=== PATIENT | female | born 1975 | race Caucasian/White ===

== ENCOUNTER 2018-02-04 07:36 | Observation (INO) | payer BC ==
[2018-02-04] MEDS ORDERED: Metoclopramide IV* 5 MG/ML 2 ML VIAL IV ONE (08:34)
[2018-02-04] MEDS ORDERED: NS 0.9% 1000 ML* 1,000 ML IV ONE (08:34)
[2018-02-04] MEDS ORDERED: Ketorolac INJ* 30 MG/ML 1 ML VIAL IV ONE (08:34)
[2018-02-04] MEDS ORDERED: Pantoprazole IV* 40 MG IV ONE (08:34)
[2018-02-04 09:14] LABS: Hematocrit 28 % (35-47); Hemoglobin 8.9 g/dl (12.0-16.0); Mean Corpuscular HGB Conc 32 g/dl (31-36); Mean Corpuscular Hemoglobin 24 pg (27-31); Mean Corpuscular Volume 74 fL (80-97); Mean Platelet Volume 8.6 um3 (7.4-10.4); Platelet Count 303 10^3/ul (150-450); Red Blood Count 3.74 10^6/ul (4.0-5.4); Red Cell Distribution Width 16 % (10.5-15); White Blood Count 7.4 10^3/ul (3.5-10.8)
--- NOTE | 2018-02-04 09:31 | RAD ---
Indication: RIGHT upper quadrant pain. Comparison: No relevant prior exams available on the [facility] [place] PACS for comparison. Technique: RIGHT upper quadrant ultrasound. Report: Appropriate direction flow documented in the portal and hepatic veins. 16.6 cm liver is mildly increased in echogenicity. Negative for focal hepatic lesions. Negative for intrahepatic biliary dilatation. 6 mm diameter upper normal common bile duct. Adequately distended gallbladder with normal 1.4 mm wall is without pathologic finding. Negative for sonographic West's sign. Unremarkable well visualized pancreas. Negative for ascites. 12.8 x 4.2 x 6.6 cm RIGHT kidney is unremarkable. IMPRESSION: 1. Mildly increased echogenicity of the liver consistent with hepatosteatosis. 2. Negative for gallbladder pathology.
[2018-02-04 09:38] LABS: Urine Appearance Clear; Urine Blood Negative (Negative); Urine Color Yellow; Urine Ketones Trace (Negative); Urine Protein Negative (Negative); Urine Specific Gravity 1.006 (1.010-1.030); Urine Urobilinogen Negative (Negative)
[2018-02-04 09:43] LABS: ABS Basophils 0.1 10^3/ul (0-0.2); ABS Eosinophils 0.1 10^3/ul (0-0.6); ABS Lymphocytes 0.8 10^3/ul (1.0-4.8); ABS Monocytes 0.4 10^3/ul (0-0.8); ABS Nucleated RBC 0 10^3/ul; Eosinophil % 1.5 % (0-6); Lymphocyte % 11.1 % (25-47); Nucleated Red Blood Cells % 0
[2018-02-04] MEDS ORDERED: Iohexol 300* (CONTRAST) 10 ML SDV IV ONE (10:12)
--- NOTE | 2018-02-04 11:25 | RAD ---
INDICATION: Abdominal pain COMPARISON: Gallbladder sonogram February 04, 2018 TECHNIQUE: Axial source images were obtained from the hemidiaphragms to the symphysis pubis following administration of oral and intravenous contrast. 61 mL Omnipaque 300 was utilized. Coronal and sagittal reconstructed images were acquired. Lung bases: The lung bases are clear. Liver: The liver is normal in size. There are no masses. There is no ductal dilatation. Gallbladder: There are no calcified gallstones. There is no evidence of wall thickening or pericholecystic fluid. Spleen: The spleen is normal in size. There are no masses. Pancreas: There is no focal pancreatic mass or ductal dilatation. Adrenal glands: There is no evidence of adrenal mass. Kidneys: The kidneys are normal in size and position. There are prompt nephrograms and there is prompt excretion bilaterally. There are no renal parenchymal masses. There is no evidence of nephrolithiasis. Adenopathy: There are multiple mesenteric lymph nodes in the central abdomen near the transverse colon abnormality. These are not technically enlarged by size criteria but are worrisome for metastatic lymph nodes. Fluid collections: There is a small amount of free fluid in the dependent portion of the pelvis. Vessels:There are no significant atherosclerotic changes involving the aorta. There is no focal aneurysm. The iliac vessels are normal in caliber. The IVC appears normal. GI tract: The upper GI tract is unremarkable. There is a roughly 10 cm segment of proximal transverse colon which is associated with significant mural thickening and is worrisome for a primary colonic malignancy. There is a small amount of perienteric stranding as well suggest endoscopy. Pelvic organs: The uterus appears normal. There is no adnexal mass. There is fluid in the adnexal regions Bladder: There are no bladder masses. Abdominal and pelvic soft tissues: The extraperitoneal abdominal and pelvic soft tissues appear normal.. Osseous structures: There are no acute osseous findings. Other: None IMPRESSION: 1. TRANSVERSE COLON LESION SUSPICIOUS FOR PRIMARY COLONIC CARCINOMA PERHAPS WITH REGIONAL LYMPH NODE INVOLVEMENT. SUGGEST ENDOSCOPY. 2. SMALL AMOUNT OF FREE FLUID IN THE DEPENDENT PORTION OF THE PELVIS Findings called to ED
[2018-02-04] MEDS ORDERED: Ketorolac INJ* 30 MG/ML 1 ML VIAL IV PUSH PRN (14:38)
[2018-02-04] MEDS: traMADol TAB* 50 MG PO PRN ×2 (14:53→23:44)
[2018-02-04] MEDS ORDERED: PEG 3000 GI LAVAGE* 1 GALLON PO ONE (17:00)
--- NOTE | 2018-02-04 18:33 | ED ---
Derrek Ruby Gabriel, scribed for Emma Mcdonald MD on 02/04/18 at 0813 . Abdominal Pain/Female - HPI Summary HPI Summary: This patient is a 43 year old F presenting to [facility] with a chief complaint of RUQ pain that began 38 hours ago. The patient rates the pain 9/10 in severity. Symptoms aggravated by movement, palpitation, and laughing. Patient reports nausea. Patient denies cough, trouble passing stool, inability to pass gas, CP, and SOB. Pt had gastric bypass several years ago. - History of Current Complaint Chief Complaint: EDAllergicReaction Stated Complaint: ABD PAIN Time Seen by Provider: 02/04/18 07:48 Hx Obtained From: Patient Hx Last Menstrual Period: 03/09/16 Onset/Duration: Lasting Days - 1.5, Still Present Timing: Constant Severity Initially: Severe Severity Currently: Severe Pain Intensity: 9 Pain Scale Used: 0-10 Numeric Location: Discrete At: RUQ Radiates: No Aggravating Factor(s): Movement, Other: - palpitation, and laughing. Associated Signs and Symptoms: Positive: Negative - SOB, cough, CP, Nausea Allergies/Adverse Reactions: Allergies Allergy/AdvReac Type Severity Reaction Status Date / Time No Known Allergies Allergy Verified 02/04/18 08:01 Home Medications: Home Medications NK [No Home Medications Reported] 02/04/18 [History Confirmed 02/04/18] PMH/Surg Hx/FS Hx/Imm Hx Endocrine/Hematology History: Denies: Hx Anticoagulant Therapy, Hx Diabetes, Hx Thyroid Disease Cardiovascular History: Denies: Hx Hypertension, Hx Pacemaker/ICD Respiratory History: Denies: Hx Asthma, Hx Chronic Obstructive Pulmonary Disease (COPD) History: Denies: Hx Renal Disease Musculoskeletal History: Denies: Hx Congenital Bone Abnormalities, Hx Fibromyalgia Neurological History: Denies: Hx Dementia, Hx Headaches, Hx Seizures, Other Neuro Impairments/ Disorders Psychiatric History: Denies: Hx Attention Deficit Hyperactivity Disorder, Hx Substance Abuse - Surgical History Surgery Procedure, Year, and Place: gastric bypass 2001 - Immunization History Immunizations Up to Date: Yes Infectious Disease History: No Infectious Disease History: Denies: Hx Hepatitis, Hx Human Immunodeficiency Virus (HIV), History Other Infectious Disease, Traveled Outside the [place] in Last 30 Days - Family History Known Family History: Negative: Renal Disease, Respiratory Disease, Seizure Disorder Family History: NON CONTRIBUTORY - Social History Alcohol Use: Occasionally Substance Use Type: Reports: None Smoking Status (MU): Former Smoker Have You Smoked in the Last Year: No Review of Systems Negative: Chest Pain Negative: Shortness Of Breath, Cough Gastrointestinal: Negative - trouble passing stool, inability to pass gas, Positive: Abdominal Pain, Nausea All Other Systems Reviewed And Are Negative: Yes Physical Exam - Summary Physical Exam Summary: GENERAL: Patient is a well developed and nourished F who is lying comfortable in the stretcher. Patient is not in any acute respiratory distress. HEAD AND FACE: Normocephalic EYES: PERRLA, EOMI x 2. EARS: Hearing grossly intact. MOUTH: Oropharynx within normal limits. NECK: Supple, trachea is midline, no adenopathy, no JVD, no carotid bruit. CHEST: Symmetric, no tenderness at palpation LUNGS: Clear to auscultation bilaterally. No wheezing or crackles. CVS: Regular rate and rhythm, S1 and S2 present, no murmurs or gallops appreciated. ABDOMEN: Soft, TTP in the RUQ. Bowel sounds are normal. No abdominal abnormal pulsations. EXTREMITIES: Full ROM in all major joints, no edema, no cyanosis or clubbing. NEURO: Alert and oriented x 3. No acute neurological deficits. Speech is normal and follows commands. SKIN: Dry and warm Triage Information Reviewed: Yes Vital Signs On Initial Exam: Initial Vitals Temp Pulse Resp BP Pulse Ox 97.7 F 65 16 124/69 96 02/04/18 07:37 02/04/18 07:37 02/04/18 07:37 02/04/18 07:37 02/04/18 07:37 Vital Signs Reviewed: Yes Diagnostics - Vital Signs Vital Signs Temp Pulse Resp BP Pulse Ox 02/04/18 07:37 97.7 F 65 16 124/69 96 - Laboratory Result Diagrams: 02/04/18 08:54 02/04/18 08:54 Lab Statement: Any lab studies that have been ordered have been reviewed, and results considered in the medical decision making process. - CT CT ABD/Pelvis CT Interpretation Completed By: Radiologist - 1. TRANSVERSE COLON LESION SUSPICIOUS FOR PRIMARY COLONIC CARCINOMA PERHAPS WITH REGIONAL LYMPH NODE INVOLVEMENT. SUGGEST ENDOSCOPY. 2. SMALL AMOUNT OF FREE FLUID IN THE DEPENDENT PORTION OF THE PELVIS ED physician has reviewed this radiology report. - Additional Comments Diagnostic Additional Comments: Gallbladder US reveals, per radiologist, 1. Mildly increased echogenicity of the liver consistent with hepatosteatosis. 2. Negative for gallbladder pathology. ED physician has reviewed this radiology report. Re-Evaluation - Re-Evaluation First Eval Re-Evaluation Time: 10:03 Change: Unchanged Comment: I informed the patient that her hemoglobin is low and she reports that she is low at baseline. I also informed her of the US results. 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 Abdominal Pain Fem Course/Dx - Course Course Of Treatment: This patient is a 43 year old F presenting to [facility] with a chief complaint of RUQ pain that began 38 hours ago. The patient rates the pain 9/10 in severity. Symptoms aggravated by movement, palpitation, and laughing. Patient reports nausea. Patient denies cough, trouble passing stool, inability to pass gas, CP, and SOB. Pt had gastric bypass several years ago. An EKG reveals. Gallbladder US reveals, per radiologist, 1. Mildly increased echogenicity of the liver consistent with hepatosteatosis. 2. Negative for gallbladder pathology. CT ABD/Pelvis reveals, per radiology, 1. TRANSVERSE COLON LESION SUSPICIOUS FOR PRIMARY COLONIC CARCINOMA PERHAPS WITH REGIONAL. LYMPH NODE INVOLVEMENT. SUGGEST ENDOSCOPY. 2. SMALL AMOUNT OF FREE FLUID IN THE DEPENDENT PORTION OF THE PELVIs. Test results with no significant abnormalities except for a CRP of 18. UA was negative for UTI. In the ED course the patient was given IV fluids, Reglan, toradol, and protonix. 1146 We discussed patient care with Dr. Aguilar and they recommended admission. She will perform a colonoscopy in the morning. 11:48 We discussed patient care with Dr. Childers and they accept the patient for admission. Patient will be admitted for a mass in her colon. The patient is agreeable with this plan. - Diagnoses Provider Diagnoses: Mass of colon Discharge - Sign-Out/Discharge Documenting (check all that apply): Discharge/Admit/Transfer - admitted to Dr. Childers - Discharge Plan Condition: Fair Disposition: ADMITTED TO [facility] Referrals: No Primary Care Phys,NOPCP [Primary Care Provider] - Consult Consult: 1146 We discussed patient care with Dr. Aguilar and they recommended admission. She will perform a colonoscopy in the morning. 11:48 We discussed patient care with Dr. Childers and they accept the patient for admission. The documentation as recorded by the scribe, Anglin,[place] accurately reflects the service I personally performed and the decisions made by , Emma Mcdonald MD.
--- NOTE | 2018-02-04 21:55 | HP ---
HISTORY AND PHYSICAL: DATE OF ADMISSION: 02/04/18 ADMITTING PROVIDER: Alfa Childers MD PRIMARY CARE PROVIDER: None. CHIEF COMPLAINT: Right lower quadrant abdominal pain, nausea. HISTORY OF PRESENT ILLNESS: Betty Martin is a 43-year-old female with no past medical history other than gastric bypass 15 years ago. She presents with 1-1/ 2 to 2 days of sharp, stabbing right lower quadrant abdominal pain, 7-8/10. For the last few months, she has had some discomfort though not pain in her abdomen that comes and goes and she stopped all gluten and subsequently lost 20 pounds. She had a urinary tract infection about 1 month ago, treated at Urgent Care with an unknown antibiotic. She had a few months ago, a similar episode of right lower quadrant pain for which she was treated in the emergency room in [place], [place]. She said they thought it was likely a viral process that would resolve and which it did. The patient has not been able to tolerate much food in the last day. She has not vomited. She describes her bowel movements as loose but not watery. She denies any shortness of breath, chest pain, fevers , or chills. In the emergency room, she was noted to have a hemoglobin of 8.9 down from 11.3 in 2017, microcytic and MCV of 74. She had an ultrasound of her gallbladder, which showed some mild increased echogenicity consistent with possible hepatosteatosis, but otherwise negative for other gallbladder pathology. She had CT abdomen and pelvis with p.o. and IV contrast, which showed a roughly 10- cm segment of proximal transverse colon associated with significant mural thickening and this was "worrisome for primary colonic malignancy." There is a small amount of perienteric stranding and endoscopy was suggested. There was a small amount of free fluid in the dependent portion of the pelvis. There were multiple mesenteric lymph nodes in the central abdomen near the transverse colon abnormality. They were not typically enlarged by size criteria but were "worrisome for metastatic lymph nodes." No evidence of nephrolithiasis was seen. Emergency room physician contacted GI physician, who had arranged to have a colonoscopy tomorrow. PAST MEDICAL/SURGICAL HISTORY: Gastric bypass surgery. MEDICATIONS: None. ALLERGIES: No known drug allergies. FAMILY HISTORY: Her father is alive, has diabetes. Her mother last July at age 66 of COPD and "arrhythmia." SOCIAL HISTORY: The patient is a former smoker, quit 10 years ago, less than 1 pack per day for a few years, only occasional alcohol use. 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 She is accompanied at the bedside by her , Agus Gant, who is her medical surrogate. She wishes to be a full code. No other drug use. REVIEW OF SYSTEMS: The patient denies any fevers, chills, or night sweats. She has had intentional or at least not unexpected weight loss of 20 pounds since changing her diet a few months ago and eliminating gluten and carbohydrates. She denies dysuria or increased frequency or urination. PHYSICAL EXAMINATION GENERAL: The patient is in no acute distress, smiling. VITAL SIGNS: Temperature 97.7, heart rate 65, respiratory rate 16, satting 96% on room air, blood pressure 124/69. HEENT: Normocephalic, atraumatic. Pupils equally round and reactive to light. Extraocular motions intact. No scleral icterus. No oropharyngeal lesions. NECK: Supple. PULMONARY: Clear to auscultation bilaterally with no wheezing, rales, or rhonchi. CARDIOVASCULAR: Regular rate and rhythm. No murmurs, rubs, or gallops. ABDOMEN: Soft, tender to palpation in the suprapubic area. No rebound or guarding. No West's sign. EXTREMITIES: Warm and well perfused. No peripheral edema. NEURO: Manager Critical Care Unit strength 5/5, hip flexion 5/5, dorsi and plantar flexion 5/5. Cranial nerves II through XII intact. Sensation intact. SKIN: Multiple tattoos in her bilateral feet and back. DIAGNOSTIC STUDIES/LAB DATA: White count 7.4, hemoglobin 8.9, hematocrit 28, MCV 74, platelets 303. Sodium 139, potassium 3.5, chloride 107, carbon dioxide 26, BUN 7, creatinine 0.61, glucose 92, lactic acid 0.6. AST 10, ALT 5, total bili 0.5. CRP 18. Amylase 18, lipase less than 10. Beta hCG less than 0.60. Urinalysis: Specific gravity 1.006, trace ketone, otherwise negative. Imaging: Gallbladder ultrasound demonstrated mildly increased echogenicity of the liver consistent with hepatosteatosis, negative for gallbladder pathology. CT abdomen and pelvis with p.o. and IV contrast demonstrates: 1. Transverse colon lesion suspicious for primary colonic carcinoma, perhaps with regional lymph node involvement, suggests endoscopy. 2. Small amount of free fluid in the dependent portion of the pelvis. ASSESSMENT AND PLAN: Betty Gant is a 43-year-old female with personal history of obesity, status post gastric bypass surgery presenting with sharp, stabbing, 7-8/10 abdominal pain with transverse colon mural thickening and some mesenteric lymph nodes, which were concerning for malignancy per the radiologist. She is being prepped for colonoscopy to rule out any malignancy. She will be on clear liquids and then GoLYTELY prep tonight, n.p.o. at midnight. I am adding on iron studies and ferritin for her microcytic anemia, MCV of 74. She denies any evidence of melena, hematochezia, hematuria. She has never had a colonoscopy before. I am adding on a fecal lactoferrin study and also we will get a stool culture. She is otherwise nontoxic appearing. We will do serial abdominal exams. She is being admitted to observation status. She is a full code. Medical surrogate is her , Agus Gant. [id number]/[facility] #: [id number] [facility]
--- NOTE | 2018-02-05 01:12 | CONS ---
CC: Emma Mcdonald MD * GASTROENTEROLOGY CONSULTATION: DATE OF CONSULT: 02/04/18 REFERRING PHYSICIAN: Emma Mcdonald MD HISTORY OF PRESENT ILLNESS: Thank you for asking me to see Mrs. Martin. As you know, she is a 43-year-old female who presented to the emergency room today with complaints of progressive epigastric and right upper quadrant discomfort which has been present over the past month in the severe form and prior to that she states she has just not been feeling well over the past few months. She has had some nausea, but no vomiting. She denies heartburn. She does describe somewhat of a change in bowel habits with looser stools over the past few months. She denies any rectal bleeding or melena. There is no family history of colon cancer or inflammatory bowel disease. In the emergency room, the patient did undergo abdominopelvic CAT scan which did reveal a 10 cm segment of proximal transverse colon with mural thickening, small amount of perienteric stranding as well as multiple mesenteric lymph nodes in the area. Findings suspicious for possible colon carcinoma. The patient has not undergone prior colonoscopy. She is anemic with hematocrit of 28, MCV of 74, and iron saturation of 6, prior hematocrit in March of 2017 was 35. PAST MEDICAL HISTORY: Noncontributory. MEDICATIONS: In hospital include: 1. Toradol. 2. Ultram. ALLERGIES: No known drug allergies. SOCIAL HISTORY: The patient is . She has had 2 boys. She denies tobacco or alcohol abuse. REVIEW OF SYSTEMS: Ten-point review of systems is performed and is otherwise negative. PHYSICAL EXAM: Mrs. Martin is a 43-year-old female, in no acute distress. Temperature is 98.1, heart rate of 56, blood pressure 130/66. HEENT Exam: There is no scleral icterus. Heart is regular rate and rhythm. Lungs are clear. Abdomen is soft. There is fullness in the right upper quadrant area with tenderness to palpation. There is some tenderness in the right lower quadrant and epigastric region as well. There is no distension. Bowel sounds are present. There is no guarding or rebound. Extremities: Without cyanosis, clubbing, or edema. Neurologic exam is grossly intact. Alert and oriented x3. DIAGNOSTIC STUDIES/LAB DATA: Pertinent laboratory studies as described above. IMPRESSION AND PLAN: Mrs. Martin has what appears to be a possible carcinoma of the proximal transverse colon. Differential diagnosis could be a Crohn's disease or segmental colon Crohn's disease in that area with the appearance on CAT scan and iron deficiency anemia. I have discussed the possibilities with the patient and her . Colonoscopy will be scheduled for tomorrow. She is on clear liquids and will receive 4 L of GoLYTELY this evening. The patient understands and is agreeable to colonoscopy tomorrow with Dr. Ahn. [id number]/[facility] #: [id number] KATHERINE
[2018-02-05] MEDS ORDERED: Midazolam* 1 MG/ML 10 ML VIAL (10 MG) ONE ×2 (12:21→13:07)
[2018-02-05] MEDS ORDERED: fentaNYL* 50 MCG/ML 2 ML VIAL (100 MCG VIAL) ONE ×2 (12:21→13:07)
[2018-02-05] MEDS ORDERED: Ondansetron ODT TAB* 4 MG SL PRN (14:32)
[2018-02-05] MEDS: traMADol TAB* 50 MG PO PRN (14:45)
[2018-02-05 14:48] LABS: ABS Basophils 0 10^3/ul (0-0.2); ABS Eosinophils 0.1 10^3/ul (0-0.6); ABS Lymphocytes 0.7 10^3/ul (1.0-4.8); ABS Monocytes 0.3 10^3/ul (0-0.8); ABS Neutrophils 4.3 10^3/ul (1.5-7.7); ABS Nucleated RBC 0 10^3/ul; Hematocrit 26 % (35-47); Hemoglobin 8.4 g/dl (12.0-16.0); Lymphocyte % 13.5 % (25-47); Mean Corpuscular HGB Conc 32 g/dl (31-36); Mean Corpuscular Hemoglobin 24 pg (27-31); Mean Corpuscular Volume 75 fL (80-97); Mean Platelet Volume 8.2 um3 (7.4-10.4); Nucleated Red Blood Cells % 0; Platelet Count 290 10^3/ul (150-450); Red Blood Count 3.51 10^6/ul (4.0-5.4); Red Cell Distribution Width 16 % (10.5-15); White Blood Count 5.6 10^3/ul (3.5-10.8)
[2018-02-05 15:42] VITALS: BP 104/42
--- NOTE | 2018-02-06 12:47 | PRO ---
DATE OF PROCEDURE: 02/05/18 - ROOM #403 PROCEDURE: Colonoscopy. INDICATION: Proximal transverse colon mass. REFERRING PHYSICIAN: None. MEDICATIONS GIVEN: 50 mcg IV fentanyl, 6 mg IV Versed. DESCRIPTION OF PROCEDURE: After the colonoscopy procedure including the risks, benefits, and alternatives, not limited to perforation, surgery, and/or were explained to the patient, written consent was then obtained, IV medication was given and a rectal exam was performed. It exam was unremarkable. An Olympus colonoscope was then inserted into the patient's rectum and advanced very carefully through the colon into the proximal transverse colon. At this point, there was a very large mass. It was circumferential. I was having a difficult time visualizing the lumen within the middle of the mass and thus I decided to not push through it. I did take numerous biopsies of the mass and injected the submucosal tattoo ink on the distal aspect to lion it for the surgeon. The scope was then withdrawn through the remainder of the colon. No other abnormalities were seen. Scope was withdrawn from the patient after a retroflexion maneuver was performed, which was unremarkable. She tolerated the procedure well and was returned to the hospital room in stable condition. IMPRESSION: 1. Incomplete colonoscopy to the hepatic flexure with submucosal tattoo ink injection and biopsies. 2. Proximal transverse colon mass, status post biopsies and submucosal tattoo ink injection. 3. The patient does need a CT of her chest, CEA, surgical consult and likely a hematology/oncology consult. This was conveyed to her hospitalist, to the patient and to her . [id number]/[facility] #: [id number] KATHERINE
--- NOTE | 2018-02-06 13:20 | DS ---
DISCHARGE SUMMARY: DATE OF ADMISSION: 02/04/18 DATE OF DISCHARGE: 02/05/18 ADMITTING AND ATTENDING PHYSICIAN: Alfa Childers MD PRIMARY CARE PROVIDER: None prior to admission, following up with Dr. Uday Pearl and the [facility] upon discharge (Dr. Childers). CHIEF COMPLAINT: Right lower quadrant abdominal pain, nausea. PRINCIPAL DIAGNOSES: A strong suspicion for colon cancer in the proximal transverse colon. HISTORY OF PRESENT ILLNESS AND HOSPITAL COURSE: Betty Martin is a 43-year-old female with past medical history of gastric bypass surgery 15 years ago. She presented with 2 days of sharp stabbing right lower quadrant abdominal pain 7 to 8. She had a similar episode a few months ago. She stopped all her gluten and ate less carbs, lost 20 pounds since then. She had urinary tract infection 1 month ago, treated with unknown antibiotic. She also followed up in the emergency room in [place] a month ago and at that time that was thought a viral process. She was noted to be anemic, hemoglobin 8.9 down from 11.3 in 2017, microcytic with MCV of 74. She had an ultrasound of the gallbladder, which showed some mild increased echogenicity consistent with possible hepatosteatosis, but otherwise negative for gallbladder pathology. She had a CT of abdomen and pelvis with p.o. and IV contrast, which showed a roughly 10- cm segment of proximal transverse colon associated with significant mural thickening, which was "worrisome for primary colonic malignancy." There was a small amount of perienteric stranding and the patient was referred to GI service. She was prepped for colonoscopy, which she had performed on February [address] Ahn. Per his verbal report, there was suspicion for colon cancer in the proximal transverse colon with circumferential thickening and oozing of blood. Dr. Morales of General Surgery was consulted and the patient was scheduled to follow up with him as an outpatient on , 02/11/18 and outpatient Hematology/Oncology appointment with Dr. Meraz was scheduled on . She had CEA that was drawn, it was within normal limits at 0.4. She is going to need a CT of her chest with IV contrast to further delineate any signs of metastatic disease or lymphadenopathy. Her hemoglobin on discharge was 8.4, slightly down from 8.9. She had iron level of 22 and iron sat of 6. She was being discharged on bowel regimen, antinausea medications and will likely need iron supplementation after her surgery. She is going to be following with the [facility] Dr. Childers on 02/10/[address] Uday Pearl. DISCHARGE MEDICATIONS: Include: 1. Docusate 100 mg p.o. b.i.d. 2. Zofran 4 mg sublingual q.6 hours p.r.n. 3. Senokot 8.6 mg p.o. daily. 4. Tramadol 50 mg p.o. q.8 hours p.r.n. for 15 tabs. DISCHARGE DIET: No restrictions. ACTIVITY LEVEL: No restrictions. FOLLOWUP: Patient has followup CT chest with IV contrast at [facility] on Thursday02/09/18, please arrive at 08:45 a.m. Follow up with [facility] with Dr. Childers, Thursday02/10/18 at 09:30 a.m.; General Surgery, Dr. Noe Morales, 02/11/18 at 10 a.m.; Dr. Uday Pearl 03/11/18 at 3 p.m.; Dr. Keny Meraz on 02/19/18 at 1 p.m. TIME SPENT: Time spent on discharge 38 minutes. [id number]/[facility] #: [id number] [facility]ITAL[facility]
== END 2018-02-05 17:20 | disposition home or self-care (01) ==
LOC: ED 07:36 → MED 12:31
PROVIDERS: ADMIT Internal Medicine; ATTEND Internal Medicine
DX: R10.31 Right lower quadrant pain (principal); K63.89 Other specified diseases of intestine; R11.0 Nausea; Z98.84 Bariatric surgery status; Z87.891 Personal history of nicotine dependence
CPT/HCPCS: 36415; 74177; 76705; 80053; 81003; 82150; 82272; 82378; 82728; 83540; 83550; 83605; 83630; 83690; 84702; 85025; 86140; 87045; 87046; 87077; 87899; 88305; 88341; 88342; 96374; 96375; 99156; 99157; 99283; A9270-GY; G0378; J1885; J2250; J2765; J3010; Q9967

== ENCOUNTER 2018-02-23 11:49 | Inpatient (IN) | payer BC ==
--- NOTE | 2018-02-17 15:21 | HP ---
CC: Dr. Meraz * PREOPERATIVE HISTORY AND PHYSICAL: DATE OF ADMISSION/SURGERY: 02/23/18 This patient is scheduled for AA admission by Dr. Morales on 02/23/18. ATTENDING SURGEON: Noe Morales MD * (DICTATED BY RICH SALINAS NP) CHIEF COMPLAINT: Colon cancer. HISTORY OF PRESENT ILLNESS: The patient is a 43-year-old female with a history of open gastric bypass in 2004 at [place]. She has a recent diagnosis of transverse colon cancer. She started having right upper quadrant abdominal pain and tenderness intermittently a few months ago. Initially, she thought it was her gallbladder as she had been told she could develop gallstones after her bariatric surgery. She presented to the [facility] for evaluation of abdominal pain. An ultrasound showed hepatic steatosis and no gallstones. Abdominal CAT scan showed a 10 cm proximal transverse colon mass with multiple mesenteric lymph nodes that were prominent. The liver was without masses. She was admitted to the hospitalist service on 02/04/18 and underwent an incomplete colonoscopy to the hepatic flexure on 02/05/18. Findings included a "very large" circumferential mass in the proximal transverse colon that could not be traversed. It was biopsied and tattooed. Biopsies showed invasive adenocarcinoma, moderately differentiated. She also had a CT of the chest that showed no metastatic disease. She has been seen in followup by Dr. Alfa Childers at the [facility] on 02/10/18. She was discharged from [facility] on 02/05/18. She is being treated for iron-deficiency anemia and she has ongoing abdominal pain, but she denies any nausea or vomiting or blood per rectum or change in bowel movements. She still has a good appetite and does not believe she has lost significant weight. Dr. Morales examined the patient and discussed the findings with the patient and her . He has recommended laparoscopic-assisted right colectomy and explained the nature of the surgical procedure, the rationale for the procedure, the possibility of an open procedure because she has had open gastric bypass, and discussed the relevant risks and benefits. Today, I instructed the patient on a bowel cleansing prep consisting of Colyte, neomycin , Flagyl, and a clear liquid diet to be taken on the day before surgery. She understands that she will be an inpatient. The patient has had a chance to ask questions and stated that she understands the information and is satisfied with the answers given to her questions. She will sign surgical consent on the day of surgery. PAST MEDICAL HISTORY: Significant for morbid obesity, smoking, iron-deficiency anemia. PAST SURGICAL HISTORY: Open gastric bypass in 2004 at [facility]. MEDICATIONS: 1. Oxycodone/acetaminophen 5/325 p.r.n. abdominal pain and she typically takes that twice a day. 2. Iron 325 mg p.o. daily. 3. Sennosides 8.6 mg 1 tablet daily. 4. Docusate 100 mg p.o. daily. ALLERGIES: No known drug allergies. FAMILY HISTORY: No known colon cancer. No known anesthesia complications or bleeding tendencies or clotting disorders. The patient's father is alive, he has diabetes. Her mother is at age 66 of COPD and arrhythmia. 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 She quit smoking about 10 years ago. She occasionally drinks alcohol and denies the use of substances. REVIEW OF SYSTEMS: Constitutional: She reports decreased energy and night sweats, but denies fever or chills or weight change. Hematologic: No easy bruising or bleeding. No history of blood transfusions. Respiratory: No dyspnea on exertion. No chronic cough. Cardiovascular: No anginal chest pain or palpitations. Gastrointestinal: As described in history of present illness. Genitourinary: No dysuria or vaginal discharge. Last menstrual period . Musculoskeletal: Normal. No back pain or joint pain. Lymph: No lymphadenopathy. Skin: No rash or unusual skin changes. General: No previous anesthesia complications, no history of deep vein thrombosis or pulmonary embolism. PHYSICAL EXAMINATION GENERAL SURVEY: The patient is a 43-year-old female, well developed, well nourished, in no acute distress. VITAL SIGNS: Height 69 inches, weight 202 pounds, body mass index 29.8. Blood pressure 104/70, pulse 66 and regular, respiratory rate 18, temperature 98.2 tympanic. HEENT: Benign. NECK: Supple. No cervical lymphadenopathy. No supraclavicular lymphadenopathy. LUNGS: Breath sounds bilaterally clear and equal. HEART: Regular rate and rhythm. No murmurs or rubs appreciated. ABDOMEN: Active bowel sounds. Soft and nondistended. Midline upper abdominal scar well healed. Palpable tender right-sided mass and fullness. No obvious organomegaly. No evidence of ventral hernias. PELVIC: Exam deferred. RECTAL: Exam deferred. EXTREMITIES: Warm without edema or clubbing or cyanosis or skin ulcerations. NEUROLOGIC: Alert and oriented x3. Steady gait. SKIN: Warm, dry, intact. IMPRESSION: Malignant neoplasm of transverse colon. PLAN: AA admission to Dr. Morales' service on 02/23/18, for laparoscopic- assisted right colectomy. The patient will take a preoperative bowel cleansing prep consisting of Colyte, neomycin, Flagyl and a clear liquid diet on 02/22/18. RICH SALINAS, COMPUTED TOMOGRAPHY TECHNOLOGIST [id number]/[facility] #: [id number] MTDNoreen
[~2018-02-23 11:49] MED LIST: Buffered Lidocaine 0.9% SYRIN* 5 ML/SYR SYRINGE INTRADERM ONE; ERTApenem(*) 1 GM in NS 0.9% 50 ML* 50 ML IVPB SCH; Famotidine IV* 10 MG/ML 2 ML (20 mg) IV ONE
[2018-02-23] MEDS ORDERED: Famotidine IV* 10 MG/ML 2 ML (20 mg) ONE (12:00)
[2018-02-23] MEDS ORDERED: Buffered Lidocaine 0.9% SYRIN* 5 ML/SYR SYRINGE ONE (12:00)
[2018-02-23] MEDS ORDERED: Midazolam* 1 MG/ML 5 ML VIAL (5 MG) ONE (12:49)
[2018-02-23] MEDS ORDERED: Propofol* 10 MG/ML 20 ML BTL IV PUSH ONE (12:49)
[2018-02-23] MEDS ORDERED: Lidocaine 2% PF * 5 ML VIAL ONE (12:49)
[2018-02-23] MEDS ORDERED: fentaNYL* 50 MCG/ML 2 ML VIAL (100 MCG VIAL) ONE ×3 (12:49→14:59)
[2018-02-23] MEDS ORDERED: DiMENhydriNATE IV* 50 MG/ML VIAL ONE (12:49)
[2018-02-23] MEDS ORDERED: Ketorolac INJ* 30 MG/ML 1 ML VIAL ONE (12:49)
[2018-02-23] MEDS ORDERED: Dexamethasone IV* 4 MG/ML 1 ML (4 MG) ONE (12:49)
[2018-02-23] MEDS ORDERED: Bupivacaine 0.25% SDV* 30 ML ONE (13:35)
[2018-02-23] MEDS ORDERED: Succinylcholine* 20 MG/ML 10 ML VIAL ONE (13:53)
[2018-02-23] MEDS ORDERED: Heparin VIAL(*) 5000 UNITS/ML VIAL (FIVE THOUSAND) ONE (13:53)
[2018-02-23] MEDS ORDERED: Rocuronium* 10 MG/ML VIAL ONE ×2 (13:53→15:08)
[2018-02-23] MEDS ORDERED: KETAMINE HCL* 50 MG/ML 10 ML VIAL ONE (14:59)
[2018-02-23] MEDS ORDERED: Acetaminophen IV 1GM/100ML * 1,000 MG/100 ML VIAL IVPB ONE (15:01)
[2018-02-23] MEDS ORDERED: Ondansetron INJ* 2 MG/ML VIAL IV PRN (15:01)
[2018-02-23] MEDS ORDERED: Naloxone* 0.4 MG/ML 1 ML VIAL IV PRN (15:01)
[2018-02-23] MEDS ORDERED: fentaNYL* 50 MCG/ML 5 ML VIAL (250 MCG VIAL) ONE (16:21)
[2018-02-23] MEDS ORDERED: Neostigmine Methylsulfate* 1 MG/ML 10 ML VIAL (1 mg/ml) ONE (17:54)
[2018-02-23] MEDS ORDERED: Glycopyrrolate IV* 0.2 MG/ML 1 ML VIAL ONE (17:54)
[2018-02-23] MEDS ORDERED: Ondansetron 40 MG VIAL* 2 MG/ML 20 ML VIAL IV PRN (18:14)
[2018-02-23] MEDS ORDERED: Acetaminophen TAB* 325 MG PO PRN (18:14)
[2018-02-23] MEDS ORDERED: HYDROmorphone INJ* 2 MG/ML CARPUJECT SYRINGE ONE (18:28)
[2018-02-23] MEDS ORDERED: Acetaminophen IV 1GM/100ML * 100 ML ONE (18:28)
[2018-02-23] MEDS: HYDROmorphone INJ* 1 MG/ML CARPUJECT SYRINGE IV PRN ×4 (18:32→19:35)
[2018-02-23] MEDS ORDERED: Ketorolac INJ* 30 MG/ML 1 ML VIAL IV SCH (19:00)
[2018-02-23] MEDS ORDERED: HYDROmorphone PCA* 20 MG/20 ML PCA.SYRING ONE (19:23)
[2018-02-23] MEDS: D5LR 1000 ML BAG* 1,000 ML IV SCH (19:39)
[2018-02-23] MEDS ORDERED: NS 0.9% 1000 ML* 1,000 ML IV SCH ×2 (20:15→21:00)
[2018-02-23] MEDS ORDERED: HYDROmorphone PCA 1 MG/ML Titrat per Protocol PCA SCH (21:00)
[2018-02-23] MEDS ORDERED: HYDROmorphone PCA* 20 MG/20 ML PCA.SYRING PCA SCH (21:00)
[2018-02-23] MEDS: Heparin VIAL(*) 5000 UNITS/ML VIAL (FIVE THOUSAND) SUBCUT SCH (21:50)
[2018-02-24] MEDS ORDERED: Naloxone* 0.4 MG/ML 1 ML VIAL IV PRN (01:06)
[2018-02-24] MEDS: D5LR 1000 ML BAG* 1,000 ML IV SCH (03:44)
[2018-02-24] MEDS: Ketorolac INJ* 30 MG/ML 1 ML VIAL IV SCH ×4 (03:45→21:39)
[2018-02-24] MEDS: Heparin VIAL(*) 5000 UNITS/ML VIAL (FIVE THOUSAND) SUBCUT SCH ×3 (05:33→21:39)
[2018-02-24 06:07] LABS: ABS Basophils 0 10^3/ul (0-0.2); ABS Eosinophils 0 10^3/ul (0-0.6); ABS Lymphocytes 0.7 10^3/ul (1.0-4.8); ABS Monocytes 0.4 10^3/ul (0-0.8); ABS Neutrophils 13.8 10^3/ul (1.5-7.7); ABS Nucleated RBC 0 10^3/ul; Eosinophil % 0 % (0-6); Hematocrit 28 % (35-47); Hemoglobin 8.7 g/dl (12.0-16.0); Lymphocyte % 4.6 % (25-47); Mean Corpuscular HGB Conc 31 g/dl (31-36); Mean Corpuscular Hemoglobin 23 pg (27-31); Mean Corpuscular Volume 74 fL (80-97); Mean Platelet Volume 8.4 um3 (7.4-10.4); Nucleated Red Blood Cells % 0; Platelet Count 454 10^3/ul (150-450); Red Blood Count 3.75 10^6/ul (4.00-5.40); Red Cell Distribution Width 16 % (10.5-15); White Blood Count 14.9 10^3/ul (3.5-10.8)
[2018-02-24 06:24] LABS: EGFR Non-African American 120.6 (>60)
--- NOTE | 2018-02-24 09:01 | PN ---
Progress Note - Progress Note Date of Service: 02/23/18 SOAP: Subjective:POD#1 s/p lap assisted R colectomy up walking,good pain control;no n/v;tolerating clears;no flatus [] Objective:afeb;VSS;O2sat 99% on ra;lungs:clear bilat;heart:RRR;abd:quiet, nondistended;incisional tenderness;dressings intact,old bloody drainage on midline dressing,no active bleeding;ext:nontender calves,no edema;large uo, campbell removed at 0830 [] Assessment:stable POD#1 [] Plan:inspiron;ambulate;continue clears;await GI function []
--- NOTE | 2018-02-24 11:23 | OP ---
CC: Aidan Ahn MD; Keny Meraz MD; Alfa Childers MD * DATE OF OPERATION: 02/23/18 - ROOM #332 DATE OF : 75 SURGEON: Noe Morales MD ASSISTANTS: 1. EVARISTO Thacker 2. Johanna Bone NP ANESTHESIOLOGIST: Nikki Persaud MD ANESTHESIA: General endotracheal. PRE-OP DIAGNOSIS: Right colon carcinoma. POST-OP DIAGNOSIS: Right colon carcinoma. OPERATIVE PROCEDURE: Laparoscopic-assisted right colectomy. ESTIMATED BLOOD LOSS: Less than 50 mL. IV FLUIDS: 3 L of crystalloids. URINE OUTPUT: 500 mL. SPECIMEN: Right colon. DRAINS: None. COMPLICATIONS: None. COUNTS: The instrument, needle, and sponge counts correct. DESCRIPTION OF PROCEDURE: The patient was brought to the operating room, placed on the table supine. Sequential compression devices were placed on both lower extremities. General anesthesia was administered. A Holman catheter was placed. She was administered appropriate intravenous antibiotics. She was prepped and draped in usual sterile fashion. Time-out was performed. Local anesthetic was infiltrated into the skin and soft tissue in the infraumbilical fold and the entry to the abdomen was through infraumbilical vertical incision using an open technique. A 5-mm optical trocar was placed into the peritoneal cavity and carbon dioxide was insufflated to a pressure of 15 mmHg. The laparoscope was introduced. There were some omental adhesions to the umbilical site. Under direct visualization, 5-mm trocar were placed into the left upper quadrant and in the lower midline of the abdomen. LigaSure was used to divide the adhesion of the omentum to the anterior abdominal wall and also to the falciform ligament. The inspection revealed adhesions of small bowel to the transverse colon mesentery. There was a large tattooed mass in the proximal transverse colon. There was no evidence of any disease along the parietal or visceral surfaces. The liver appeared normal. The anterior stomach appeared normal. The patient's omentum was retracted superiorly along with the transverse colon and adhesiolysis was performed to free the small bowel from the transverse colon mesentery. There were numerous adhesions that were filmy encountered. There was a jejunojejunostomy identified. After freeing small bowel away from the midline of the inferior aspect of the transverse colon mesentery, dissection proceeded along the terminal ileum and cecum freeing these structures from the lateral wall and the dissection proceeded distally to the hepatic flexure. The dissection then proceeded also from the mid transverse colon dividing the gastrocolic ligament with the LigaSure and proceeding with dissection again toward the hepatic flexure with care to identify and preserve the duodenum. The hepatic flexure was in this fashion taken down and the right colon was medialized. The gastrocolic ligament was further divided distally to free up an adequate length of intestine. At this point, again the small bowel was encountered and it was decided to create the laparotomy through the prior upper midline scar. This was opened for a length of about 9 cm and then the right colon and the mass were exteriorized. An Nick retractor was used for this portion of the case. Portions of omentum that were stuck to the transverse mesocolon were dissected free using combination of blunt dissection and LigaSure. Additional dissection was taken at the transverse mesocolon inferiorly to free additional adhesions of the jejunum to the site. Ultimately, the middle colic vessels were identified and it was determined that an extended right hemicolectomy would be performed. The patient was noted to have prominent and tattooed lymph nodes within the transverse colon mesentery and these were incorporated within the dissection. The mesentery was divided utilizing the LigaSure as well as dividing between clamps and ligating with 2-0 Vicryl suture ligatures and 2-0 Vicryl ties. After completing the division, the bowel was divided with a MARILUZ stapler using blue cartridge, both on the proximal and distal ends. The specimen was handed off and submitted to pathology. Continuity of the bowel was restored by a [id number] functional side-to-end ileocolic anastomosis with a MARILUZ-80 stapler and a TA-60 blue stapler was used to close the common enterotomy. The stapled ends were oversewn with running 3-0 PDS to reinforce them and the crotch of the anastomosis was reinforced with 3-0 silks. The mesenteric defect was closed with interrupted 3-0 silks. Inspection revealed the anastomosis to be widely patent and well perfused. The bowel was returned to the abdominal cavity and the remaining omentum was used to lay over this. The midline was then closed with #1 PDS looped running from each end and then tying in the midline. The wound was irrigated and then closed with alfonso. The remaining wounds were closed with alfonso and dressings were applied to all the sites. The patient tolerated this procedure well. The patient was extubated uneventfully and transferred to recovery room in stable condition. [id number]/[facility] #: [id number] MTDD
[2018-02-25] MEDS: Ketorolac INJ* 30 MG/ML 1 ML VIAL IV SCH ×3 (04:02→16:05)
[2018-02-25] MEDS: Heparin VIAL(*) 5000 UNITS/ML VIAL (FIVE THOUSAND) SUBCUT SCH ×3 (05:53→22:05)
[2018-02-25] MEDS ORDERED: HYDROcodone/ACET. 7.5/325 LIQ* 15 ML UDC PO PRN (09:48)
--- NOTE | 2018-02-25 09:51 | PN ---
Progress Note - Progress Note Date of Service: 02/25/18 SOAP: Subjective: []Pain controlled. No N/V. No flatus. Ambulating. Objective: [] Vital Signs Temp 97.7 F 02/25/18 07:23 Pulse 50 02/25/18 07:23 Resp 16 02/25/18 07:53 BP 105/49 02/25/18 07:23 Pulse Ox 99 02/25/18 07:53 gen: NAD abd: ND, incisions c/d/i no erythema; soft; mildly tender. Intake & Output 02/24/18 02/25/18 02/25/18 18:59 06:59 18:59 Intake Total 959 930 Output Total 900 1250 0 Balance 59 -320 0 Intake: IV Fluids 614 D5LR 614 Oral 345 930 Output: Urine 500 1250 0 Holman 400 Other: # Bowel Movements 0 Assessment: []POD#2 s/p lap R colon. Doing well. Plan: []Await GI fct. Po meds. Shower. F/u path
[2018-02-25] MEDS: HYDROcodone/ACETAMIN 5-325 MG* 1 TAB PO PRN ×3 (14:09→22:05)
[2018-02-26] MEDS: HYDROcodone/ACETAMIN 5-325 MG* 1 TAB PO PRN ×3 (05:43→14:10)
[2018-02-26] MEDS: Heparin VIAL(*) 5000 UNITS/ML VIAL (FIVE THOUSAND) SUBCUT SCH ×2 (05:44→14:10)
--- NOTE | 2018-02-26 08:56 | PN ---
Progress Note - Progress Note Date of Service: 02/26/18 SOAP: Subjective:POD#3 s/p right colectomy hungry,passed loose stool;good pain control with oral analgesics;using inspiron [] Objective:afeb,VSS;lungs:clear bilat,good expansion;heart:RRR;abd:+bs,soft, nondistended;incisions C/D/I,intact with alfonso,no infection;ext:nontender calves,no edema [] Assessment:doing very well postop [] Plan:advance to full liqs;d/c [employer];saline lock IVF;likely disch home later today; will go over pathology later this morning;Nutrition consult prior to discharge. []
[2018-02-26 12:36] VITALS: BP 92/47
--- NOTE | 2018-02-27 04:24 | DS ---
CC: Dr. Keny Meraz; Outpatient [facility] * DISCHARGE SUMMARY: DATE OF ADMISSION: 02/23/18 DATE OF DISCHARGE: 02/26/18 ATTENDING SURGEON: Dr. Noe Morales.* (DICTATED BY EVARISTO MAYO) HOSPITAL COURSE: Please refer to admission history and physical and operative note for details. The patient was taken to the operating room on 02/23/18 at which time she underwent laparoscopic assisted right colectomy with Dr. Morales. Pathology revealed poorly differentiated invasive carcinoma with clear margins and 18 lymph nodes negative for tumor. However, there was a single tumor deposit within the pericolic fat (see separate report). The patient's postoperative course has been characterized by gradual improvement in pain and tolerance of oral liquids. As of the morning of discharge, temperature 98, blood pressure 92/47 ranging to 121/54, pulse 48 ranging to 62, respirations 17, room air saturation 100%. The patient was seen and examined earlier this morning by Johanna Bone NP (see her progress note). IMPRESSION: Status post laparoscopic-assisted right colectomy for adenocarcinoma, doing well. PLAN: Ready for discharge home. Instructions were reviewed regarding wound care, activity, and dietary advancement. She has an appointment with our office on 03/04/18 and is also scheduled with Dr. Meraz's office on 03/05/18. The discharge planning will be checking with her regarding establishment of primary care. DISCHARGE MEDICATIONS: Will include: 1. Her usual iron and senna p.r.n. 2. She has a prescription for Zofran p.r.n. and Percocet p.r.n. EVARISTO MAYO [id number]/[facility] #: [id number] MTDD
== END 2018-02-26 15:30 | disposition home or self-care (01) | DRG 221 ==
LOC: AA 11:49 → SSU 20:55
PROVIDERS: ADMIT Surgery; ATTEND Surgery
PROC: 0DTF4ZZ Resection of Right Large Intestine, Percutaneous Endoscopic Approach (ICD-10-PCS; principal; 2018-02-23 14:00)
DX: C18.4 Malignant neoplasm of transverse colon (principal); D50.9 Iron deficiency anemia, unspecified; K76.0 Fatty (change of) liver, not elsewhere classified; E66.9 Obesity, unspecified; Z83.3 Family history of diabetes mellitus; Z83.6 Family history of other diseases of the respiratory system; Z68.29 Body mass index [BMI] 29.0-29.9, adult; Z87.891 Personal history of nicotine dependence; Z98.84 Bariatric surgery status
CPT/HCPCS: 36415; 80048; 81025; 85025; 88309; C1776; J0330; J1100; J1170; J1240; J1335; J1644; J1885; J2250; J2704; J2710; J3010

== ENCOUNTER 2018-03-16 09:24 | Day surgery (SDC) | payer BC ==
[~2018-03-16 09:24] MED LIST changes: -ERTApenem(*) 1 GM in NS 0.9% 50 ML* 50 ML IVPB SCH; -Famotidine IV* 10 MG/ML 2 ML (20 mg) IV ONE
[2018-03-16] MEDS ORDERED: Buffered Lidocaine 0.9% SYRIN* 5 ML/SYR SYRINGE ONE (09:53)
[2018-03-16] MEDS ORDERED: ceFAZolin 2 GM PREMIX (*) 2 GM/50 ML BAG IVPB ONE (09:53)
[2018-03-16] MEDS ORDERED: Midazolam* 1 MG/ML 5 ML VIAL (5 MG) ONE (11:09)
[2018-03-16] MEDS ORDERED: fentaNYL* 50 MCG/ML 2 ML VIAL (100 MCG VIAL) ONE (11:09)
[2018-03-16] MEDS ORDERED: Lidocaine 1%* 5 ML VIAL ONE ×2 (11:36→12:00)
[2018-03-16] MEDS ORDERED: Propofol* 10 MG/ML 20 ML BTL IV PUSH ONE (12:01)
[2018-03-16] MEDS ORDERED: Naloxone* 0.4 MG/ML 1 ML VIAL IV PRN (12:29)
[2018-03-16] MEDS ORDERED: oxyCODONE TAB* 5 MG TAB PO PRN (12:40)
[2018-03-16] MEDS ORDERED: Ibuprofen TAB* 600 MG PO PRN (12:40)
[2018-03-16] MEDS ORDERED: Acetaminophen TAB* 325 MG PO PRN (12:40)
--- NOTE | 2018-03-16 13:13 | RAD ---
INDICATION: PowerPort placement. Colon carcinoma. Technique: 14.9 seconds of?fluoroscopy?was provided?for the physician proceduralist. REPORT: LEFT chest port in place with tip at level of superior vena cava RIGHT atrial junction. IMPRESSION: Procedural control films. CPT II Codes: G9500
[2018-03-16 13:18] VITALS: BP 108/64
== END 2018-03-16 13:35 | disposition home or self-care (01) ==
LOC: OR 09:24
PROVIDERS: ATTEND Surgery
DX: C18.4 Malignant neoplasm of transverse colon (principal); Z87.891 Personal history of nicotine dependence; R00.1 Bradycardia, unspecified; J45.909 Unspecified asthma, uncomplicated
CPT/HCPCS: 76000; 81025; C1788; J0690; J1642; J2250; J2704; J3010